=== PATIENT | male | born 1940 | race Caucasian/White ===

== ENCOUNTER → 2016-06-01 | Outpatient (CLI) | payer MEDICARE ==
[~2016-06-01] MED LIST: ALPRAZOLAM ER1 MG GT; ALPRAZOLAM ER1 MG PEG; ALPRAZOLAM0.5 MG PO; ALPRAZOLAM1 MG GT; ASPIRIN81 M2 PO; ASPIRINEC PO; AUGMENTIN875 M1 PEG; CLARITIN10 MG; DAKIN'S MODIF1000 ML EXT; DILAUDID PO; EXCEDRIN MIGRAI1 TA1; FISH OIL PO; GABAPENTIN300 M2 GT; GABAPENTIN300 MG; GABAPENTIN300 MG GT; GABAPENTIN300 MG PO; LACTULOSE10 G/15 M1 GT; LEVOTHYROXINE25 MCG GT; LIPITOR PO; LISINOPRIL PO; LOPRESSOR PO; LORTAB 5-325 M1 EACH PO; NICOTINE TRANSD14 MG EXT; PHENERGAN PO; PRAVACHOL80 MG PO; PRAVASTATIN SOD40 MG PO; PRAVASTATIN SOD80 MG GT; ROCEPHIN IV; SYNTHROID GT; SYNTHROID0.05 MG DOB; VIBRAMYCIN100 M1 GT; VICODIN 5/500 T1 TAB
--- NOTE | ~2016-06-01 | CR63 ---
[facility] A Service of [facility] RADIOLOGY TEXT RESULTS PATIENT: MICHEAL LATHAM RAY LOCATION: [facility] : 40 UNIT #: [id number] AGE: [address]: DONTA TRISTAN MD SEX: M ORDER DR: [id number] [facility]. [place], [place] [address] [id number] O MR#: [id number] Acc #: [id number] NAME: MICHEAL LATHAM : 1940 SEX: M STUDY DATE/TIME: 06/01/2016 12:36 UNIT: [facility] ROOM: STUDY DESCRIPTION: CR Chest 2 View Attending Physician: Donta Tristan M.D. Referring Physician: Donta Tristan M.D. Ordering Physician: Donta Tristan M.D. Primary Care Physician: Donta Tristan M.D. MEDICAL IMAGING REPORT This report is preliminary unless electronic signature is present EXAM Two-view chest, 06/01/2016 INDICATIONS 75-year-old male with respiratory infection, acute upper respiratory infection, tobacco dependence. Cough and congestion for 3 weeks. History of throat and tongue malignancy. History of tobacco abuse. TECHNIQUE Two-view chest was performed. COMPARISON 10/14/2015 FINDINGS Vertebroplasty changes are present at the thoracolumbar junction. The patient is status post anterior cervical surgery. Cardiac silhouette within normal limits. There is elongation of the thoracic aorta which is tortuous and ectatic. Mild emphysema present. There is basilar fibrosis and scarring left greater than right. Additional fibrosis/scarring in the mid to upper lung zone on the right. No dense consolidation pneumothorax or effusion. There is thoracic spondylosis. IMPRESSION 1. Chronic lung changes related to emphysematous scarring and fibrosis. No definite superimposed active disease. 2. Vertebroplasty changes in the thoracolumbar junction region and postop changes in the cervical spine. Dictated by... Scottie Antonio M.D. THIS IS AN ELECTRONICALLY VERIFIED REPORT [facility] A Service of [facility] RADIOLOGY TEXT RESULTS PATIENT: MICHEAL LATHAM RAY [id number] UNIT #: [id number] AGE: [address]: DONTA TRISTAN MD SEX: M ORDER DR: Scottie Antonio M.D. at 06/02/2016 10:23 AM Melisa TD: 06/02/2016 08:03 JOB #: [id number] MEDICAL IMAGING REPORT COPY
== END | disposition home or self-care (01) ==
LOC: CRAD 12:15
DX: J06.9 Acute upper respiratory infection, unspecified (principal); J43.9 Emphysema, unspecified; J98.4 Other disorders of lung; J84.10 Pulmonary fibrosis, unspecified; F17.200 Nicotine dependence, unspecified, uncomplicated; Z98.890 Other specified postprocedural states
CPT/HCPCS: 71020

== ENCOUNTER 2016-09-11 23:11 | Inpatient (IN) | payer MEDICARE ==
--- NOTE | ~2016-09-11 | CT127 ---
[facility] A Service of [facility] & [facility] RADIOLOGY TEXT RESULTS PATIENT: MICHEAL LATHMA RAY LOCATION: C2A 242-01 : 40 UNIT #: [id number] AGE: [address]: Marvel Sandoval MD SEX: M ORDER DR: [id number] [facility] [address] [facility]. [place], [place] [address] [id number] I MR#: [id number] Acc #: [id number] NAME: MICHEAL LATHAM : 1940 SEX: M STUDY DATE/TIME: 09/12/2016 11:12 UNIT: C2A ROOM: 242 STUDY DESCRIPTION: CT Upper Ext Lt Wo Cont Attending Physician: Marvel Sandoval M.D. Ordering Physician: Faustino Schwartz M.D. Primary Care Physician: Bettye Johnson M.D. MEDICAL IMAGING REPORT This report is preliminary unless electronic signature is present EXAM CT left elbow without contrast, 09/12/2016 HISTORY 75-year-old male with left elbow and arm pain for 2 days. Swelling. Order states septic cellulitis, evaluate for left elbow effusion. COMPARISON Left elbow x-ray, 09/12/2016 TECHNIQUE Helical scan performed through the left elbow without IV contrast. Multiplanar reformatted images. This CT exam was performed with one or more of the following radiation dose reduction techniques: Automatic exposure control, adjustment of mA and/or kV according to patient size, and iterative reconstruction. FINDINGS The examination is significantly limited by streak artifact related to positioning. No evidence of acute fracture or dislocation. There are advanced degenerative changes throughout the elbow. There is a 1-cm osseous body adjacent to the coronoid process. There is no evidence of a significant effusion on this unenhanced exam. There is mild posterior soft tissue swelling along the elbow. No grossly drainable soft tissue fluid collections are identified. IMPRESSION 1. Limited examination secondary to streak artifact and lack of IV contrast. Allowing for this, no gross evidence of a significant joint effusion or soft tissue fluid collection. 2. Advanced left elbow arthrosis with a suspected 1-cm osseous body adjacent to the coronoid process of the ulna. No evidence of acute fracture. [facility] A Service of [facility] & [facility] RADIOLOGY TEXT RESULTS PATIENT: MICHEAL LATHAM RAY LOCATION: C2A 242-01 : 40 UNIT #: [id number] AGE: [address]: Marvel Sandoval MD SEX: M ORDER DR: Dictated by... Niranjan Bourgeois M.D. THIS IS AN ELECTRONICALLY VERIFIED REPORT Niranjan Bourgeois M.D. at 09/12/2016 6:10 PM DEION/richard TD: 09/12/2016 16:57 JOB #: [id number] MEDICAL IMAGING REPORT Page 1 of 1 COPY
--- NOTE | ~2016-09-11 | OR ---
Unit #: [id number] #: [id number] Patient: MICHEAL LATHAM [id number] [address] [address] [id number] I MR#: [id number] NAME: MICHEAL LATHAM ROOM: 242 Date of Procedure: 09/13/2016 Admission Date: 09/12/2016 Surgeon: Faustino Schwartz M.D. : 1940 Attending Physician: Marcelina Tomas M.D. Primary Care Physician: Bettye Johnson M.D. OPERATIVE REPORT PREOPERATIVE DIAGNOSIS Infected left elbow. POSTOPERATIVE DIAGNOSIS Infected left elbow. PROCEDURE PERFORMED Incision and drainage, left elbow. ASSISTANTS Yokasta Rivrea. ANESTHESIA Block. DESCRIPTION OF PROCEDURE The patient brought to the operating room, given a block by Anesthesia, then brought back to the operating room. Tourniquet placed around the left arm. The left arm was prepped and draped in a sterile fashion. Tourniquet inflated to 200. We then made a lateral skin incision over the radiocapitellar joint. The subcutaneous dissected away. The radiocapitellar joint was entered and there was very cloudy fluid was returned about probably 7 to 10 mL. This was cultured. We then debrided the soft tissues a bit and then irrigated the joint with bacitracin. We then placed a small drain, repaired the lateral capsule with 0 Vicryl. The subcutaneous was closed with 2-0 Vicryl, sterile daniel in the skin. Sterile dressing applied and his general anesthetic reversed. nurse's assistant, Yokasta Rivera, was present throughout the entire case. Dictated by... Jermaine Ortiz/solitario TD: 09/13/2016 20:25 JOB #: [id number] Unit #: [id number] #: [id number] Patient: MICHEAL LATHAM OPERATIVE REPORT Page 1 of 1 X Faustino Schwartz MD PROCEDURE OPERATIVE NOTE
--- NOTE | ~2016-09-11 | DS ---
Unit #: [id number] #: [id number] Patient: MICHEAL LATHAM [id number] I MR#: [id number] NAME: MICHEAL LATHAM ROOM: 242 Age: 75 Sex: M Admission Date: 09/12/2016 : 1940 Discharge Date: 09/16/2016 Attending Physician: Marcelina Tomas M.D. Primary Care Physician: Bettye Johnson M.D. DISCHARGE SUMMARY PRINCIPAL DIAGNOSES 1. Left elbow septic arthritis with negative gram stains. 2. Chronic hypoxic respiratory failure, maintained on 2 L of oxygen per nasal cannula continuously. 3. Chronic obstructive pulmonary disease. 4. Tobaccoism. 5. History of head and neck cancer, status post PEG tube placement. 6. History of lung cancer. 7. Mild hyponatremia. 8. Moderate protein malnutrition. 9. Hypothyroidism, per history. CONSULTANTS 1. Dr. Schwartz - Orthopedic Surgery. 2. Dr. Heath - Infectious Disease. PROCEDURES 1. Incision and drainage of left elbow. This occurred without complication. 2. X-ray of left elbow on September 12, 2016, with no acute findings. Extensive degenerative change of left elbow noted. 3. Chest x-ray on September 12, 2016, with increased opacity in the right apex suspicious for infiltrate. 4. CT of left upper extremity without contrast on September 12, 2016. There is no gross evidence of significant joint effusion or soft tissue fluid collection. 5. Left elbow arthrosis noted. CLINICAL HISTORY/HOSPITAL COURSE Mr. Latham is a nice 75-year-old male who presents to the emergency department with swelling, redness and pain of his left elbow. Please refer to H and P for further details. Clinical evaluation was most consistent with cellulitis. Upon presentation, patient was found to have a leukocytosis of 19.8. He was subsequently admitted. Orthopedic surgery was consulted regarding patient's cellulitis. X-rays failed to reveal any significant findings. CT scan did not reveal any abscess. However, patient continues to complain of significant pain, swelling, and there was a lot of associated warmth. He subsequently underwent I and D and was found to have a septic left elbow. However, cultures were negative given he has been on antibiotic therapy approximately two days prior to surgical intervention. For guidance regarding antibiotic therapy, Dr. Heath consulted. The patient was initially maintained on vancomycin and Zosyn. He has now been changed to Unit #: [id number] #: [id number] Patient: MICHEAL LATHAM Rocephin. He has remained afebrile and white blood cell count overall has been relatively stable. I will note, on day of discharge it is still elevated at approximately 16,000 but patient has remained afebrile. He will have weekly blood work done while on Rocephin. I will note, patient was found to be hypoxic several days during evaluation. He did not have any wheezes. Room air O2 sats went into the low 80s and patient was asymptomatic. I have arranged home oxygen for him at 2 L per nasal cannula. We briefly discussed tobacco cessation. DISCHARGE CONDITION Stable. DISCHARGE STATUS To home with home health. DISCHARGE MEDICATIONS 1. Rocephin 2 g IV q.24 hours through October 14, 2016. 2. [place] 5/325, one to two tablets p.o. q.4 hours p.r.n. for pain, number given 25. 3. Aspirin 81 mg daily. 4. Pravachol 80 mg daily. 5. Xanax 1 mg daily. 6. Gabapentin 300 mg daily. 7. The patient will continue bolused tube feeds as he was doing at home previously. DISCHARGE INSTRUCTIONS The patient was instructed to again continue his bolus tube feeds as noted. In regards to dressing changes of his elbow, dressing should be changed daily or saturated. He can increase activity as tolerated. FOLLOWUP The patient will follow up with Dr. Schwartz in approximately ten days. The patient will follow up with his primary care physician, Dr. Bettye Johnson, in two weeks. While on IV antibiotics, patient needs weekly CBC, BMP, CRP and sed rate done with results faxed to Dr. Heath and she should have discontinuation of PICC line after last dose of antibiotics on 10/14. Dictated by... Marcelina Tomas M.D. SHERIE/keon TD: 09/17/2016 11:14 JOB #: [id number] Unit #: [id number] #: [id number] Patient: MICHEAL LATHAM DISCHARGE SUMMARY Page 1 of 1 X Marcelina Tomas MD X DISCHARGE SUMMARY
--- NOTE | ~2016-09-11 | CR72 ---
[facility] A Service of [facility] RADIOLOGY TEXT RESULTS PATIENT: MICHEAL LATHAM LOCATION: C2A 242 : 40 UNIT #: [id number] AGE: [address]: Marvel Sandoval MD SEX: M ORDER DR: [id number] [facility] [address] [facility]. [place], [place] [address] [id number] I MR#: [id number] Acc #: [id number] NAME: MICHEAL LATHAM : 1940 SEX: M STUDY DATE/TIME: 09/12/2016 0:31 UNIT: CEDOF ROOM: 98453 STUDY DESCRIPTION: CR Chest Single View Portable Attending Physician: Marvel Sandoval M.D. Ordering Physician: Alena Harris M.D. Primary Care Physician: Bettye Johnson M.D. MEDICAL IMAGING REPORT This report is preliminary unless electronic signature is present EXAM Portable chest INDICATION Preoperative evaluation for elbow surgery. Weakness and shortness of air today. PROCEDURE Frontal view chest. COMPARISON 06/01/2016 FINDINGS There is increased opacity in the right apex since the previous study. Heart size is stable. No visible pneumothorax. IMPRESSION Increased opacity in the right apex since 06/01/2016 suspicious for infiltrate. Correlate with any current symptoms. Dictated by... Nilson Campbell M.D. THIS IS AN ELECTRONICALLY VERIFIED REPORT Nilson Campbell M.D. at 09/12/2016 10:22 PM EED/ljd TD: 09/12/2016 03:03 JOB #: [id number] [facility] A Service [facility] RADIOLOGY TEXT RESULTS PATIENT: MICHEAL LATHAM LOCATION: C2A 242- : 40 UNIT #: [id number] AGE: [address]: Marvel Sandoval MD SEX: M ORDER DR: MEDICAL IMAGING REPORT Page 1 of 1 COPY
--- NOTE | ~2016-09-11 | CR93 ---
[facility] A Service of [facility] RADIOLOGY TEXT RESULTS PATIENT: MICHEAL LATHAM LOCATION: C2A 242- : 40 UNIT #: [id number] AGE: [address]: Marvel Sandoval MD SEX: M ORDER DR: [id number] [id number] [place], [place] [address] [id number] I MR#: [id number] Acc #: [id number] NAME: MICHEAL LATHAM : 1940 SEX: M STUDY DATE/TIME: 09/12/2016 0:28 UNIT: CEDOF ROOM: 07473 STUDY DESCRIPTION: CR Elbow Min 3 Views Lt Attending Physician: Marvel Sandoval M.D. Ordering Physician: Alena Harris M.D. Primary Care Physician: Bettye Johnson M.D. MEDICAL IMAGING REPORT This report is preliminary unless electronic signature is present EXAM Left elbow series INDICATION Preoperative evaluation. Elbow pain for the past day. PROCEDURE 3 views of the left elbow. COMPARISON None. FINDINGS Extensive degenerative change. No acute fracture, dislocation or appreciable joint effusion. IMPRESSION No definite acute findings. Extensive degenerative change of the left elbow. Dictated by... Nilson Campbell M.D. THIS IS AN ELECTRONICALLY VERIFIED REPORT Nilson Campbell M.D. at 09/12/2016 10:22 PM EED/stephen TD: 09/12/2016 03:02 JOB #: [id number] MEDICAL IMAGING REPORT [facility] A Service of [facility] RADIOLOGY TEXT RESULTS PATIENT: MICHEAL LATHAM LOCATION: C2A 242 : 40 UNIT #: [id number] AGE: [address]: Marvel Sandoval MD SEX: M ORDER DR: Page 1 of 1 COPY
--- NOTE | ~2016-09-11 | HP ---
Unit #: [id number] #: [id number] Patient: MICHEAL LATHAM [id number] [address] [address] [id number] I MR#: [id number] NAME: MICHEAL LATHAM ROOM: 242 Age: 75 Sex: M Admission Date: 09/12/2016 : 1940 Attending Physician: Marvel Sandoval M.D. Primary Care Physician: Bettye Johnson M.D. HISTORY AND PHYSICAL CHIEF COMPLAINT Left elbow pain and swelling of 3 days' duration. HISTORY OF PRESENT ILLNESS This is a 75-year-old male who has history of multiple medical problems in the past who has presented to the emergency room for not feeling well, having generalized weakness, left elbow pain and swelling of 3 days' duration, which had gradually been getting worse. The patient declines any fever or chills, is being admitted for possible cellulitis versus abscess. PAST MEDICAL HISTORY 1. Stage II non-small cell lung cancer diagnosed in 2007 status post (1) dissection, radiation treatment, chemotherapy. 2. Hypothyroidism. 3. History of prostate cancer. PAST SURGICAL HISTORY 1. Status post prostatectomy. 2. History of PEG tube placement in the past. 3. Total hip replacement bilaterally. 4. Bilateral inguinal hernia repair. ALLERGIES None. HOME MEDICATION List is reviewed. Please see chart. CURRENT MEDICATIONS 1. Pravachol 80 mg daily. 2. Gabapentin 300 mg p.o. daily. 3. Alprazolam 1 mg p.o. daily. 4. Aspirin 81 mg daily. SOCIAL HISTORY Lives at home with nephew and the nephew's family. Smokes less than half a pack per day. REVIEW OF SYSTEMS A 10-point review of systems was completed. Please HPI. Otherwise, it is unremarkable. PHYSICAL EXAMINATION Unit #: [id number] #: [id number] Patient: MICHEAL LATHAM GENERAL: He is awake, alert, oriented to time, place and person. VITAL SIGNS: He is afebrile. Temperature is 98, blood pressure 101/54, pulse rate 79. HEENT: EOMI. Pupils equally react to light. NECK: Supple. No thyromegaly noted. CVS: Regular rhythm. No murmurs. ABDOMEN: Soft. Nontender. Bowel sounds positive. EXTREMITIES: Left arm swelling and cellulitis noted at the left elbow area. NEUROLOGIC: Nonfocal. Moving all extremities. SKIN: No ulcers or rashes noted. DIAGNOSTIC STUDIES LABS: BUN is 12, creatinine 0.7, sodium 133, potassium 4.1, chloride 98, CO2 26. Hemoglobin is 12.4, hematocrit 38.3, white cell count is 18,000 with 82% neutrophils. Blood cultures are pending. ASSESSMENT 1. Left elbow cellulitis/abscess. 2. History of lung cancer in the past with radiation. 3. Abnormal thyroid function test. PLAN Start IV antibiotics, vancomycin and Zosyn. Patient seen by orthopedics. Will check the CT scan of left elbow for possible evaluation for effusion/abscess. Possible I and D in the morning, as per ortho. The patient is NPO at this time. Continue all the home medications. Dictated by Jermaine Fitzgerald/nikki TD: 09/12/2016 13:23 JOB #: [id number] HISTORY AND PHYSICAL Page 1 of 1 X Nabil Pérez MD X HISTORY AND PHYSICAL
--- NOTE | ~2016-09-11 | EKG ---
PATIENT: MICHEAL LATHAM UNIT #: [id number] Ventricular Rate: 77 BPM Atrial Rate: 77 BPM P-R Interval: 156 ms QRS Duration: 72 ms Q-T Interval: 354 ms QTC Calculation(Bezet): 400 ms P [place]: 40 degrees Calculated R [place]: -61 degrees Calculated T [place]: 32 degrees Diagnosis Line: Normal sinus rhythm Diagnosis Line: Left axis deviation Diagnosis Line: Low voltage QRS Diagnosis Line: Inferior infarct (cited on or before 14-OCT-2015) Diagnosis Line: Abnormal ECG Diagnosis Line: When compared with ECG of 14-OCT-2015 17:24, Diagnosis Line: No significant change was found Diagnosis Line: Confirmed by KORY DREW MD ([id number]) on Diagnosis Line: 09/12/2016 10:45:35 PM INTERPRETING MD: STEVE
--- NOTE | ~2016-09-11 | A ---
[facility] Nutrition Therapy DATE: 09/13/16 Patient: MICHEAL LATHAM Physician: NATIVIDAD Address: [address] Room/Bed: [address] [place] [address], Zip: [place] [address] Admit Date: 09/12/16 Date of : 40 Height: 5 8 Weight: 152 68.94 NUTRITIONAL ASSESSMENT: REASON: 2 points nutrition screen RE: Home TF and chewing difficulty 75 yo male admitted for elbow pain s/p left elbow I&D PMH: Stage II non-small cell lung cancer, head and neck cancer s/p chemo and radiation, PEG, hypothyroid, prostate cancer Anthropometrics: Ht: 5'8" Wt: 68.94 kg BMI: 23.1 Labs: Na+ 131 Cl- 96 Creat 0.5 Ca++ 8.2 CRP 11.6 Meds: Senokot, MOM, bisacodyl, zofran, lipitor, NaCl, KCl I/O & Bowel function: 2285/7, last BM 09/13, PEG Skin Integrity: PEG- abdomen No edema noted Estimated Nutrition Needs: 7699-1103 kcals (30-35 kcals/kg) 96-124 grams protein (1.4-1.8 grams/kg) Home enteral nutrition regimen (via PEG): Bolus two boxes Isosource 1.5 TID for a total of six boxes (with additional as needed) This regimen provides: 2250 kcals/ 102 grams protein/ 1146 mL free H20 Assessment: Chart reviewed, events noted. RD assessing the pt for his home TF regimen. RD spoke with the pt and his family at bedside. Family reports that the pt does not take any nutrition PO, receives all nutrition via his PEG for several years, which the family brings from home and administers via PEG (Isosource 1.5). Please note, the pt is ordered a clear liquid diet. RD informed RN that the pt should not have a PO diet order. Pt and his family report that his typical enteral regimen at home as noted above. This does meet the pt's nutritional needs calculated by RD; however, pt and family report that he has lost some weight recently. RD recommended to increase this regimen by one box of Isosource 1.5 if weight loss persists. Pt and family unsure of exact weight loss amount. Pt and family denied having any nutrition-related questions at this time. Dx: Unplanned weight loss RT PMH, increased nutrient needs AEB pt and family reported weight loss of unknown amount (suspected ~5#). [facility] Nutrition Therapy DATE: 09/13/16 Patient: MICHEAL LATHAM Physician: NATIVIDAD Address: [facility] [address] Room/Bed: [address] [place] [address], Zip: [place] [address] Admit Date: 09/12/16 Date of : 40 Height: 5 8 Weight: 152 68.94 Intervention: 1. Continue home enteral nutrition regimen, adding one box as needed for weight loss 2. Free H20 Monitoring, Evaluation and Goals: 1. Enteral nutrition; tolerance, provide >80% goal volume x 24 hrs 2. Weight; prevent weight loss 3. Improve labs; Na+ Recommendations: 1. Continue the pt's current home enteral nutrition regimen with Isosource 1.5. Bolus two boxes (250 mL each) TID for a total of six boxes to provide: 2250 kcals/ 102 grams protein/ 1146 mL free H20 *Bolus an additional 1-2 boxes as needed for weight loss Please note, the pt's family brings his enteral formula from home and administers it via PEG 2. Add 200 mL free H20 flushes q 4 hrs or per MD orders. 3. D/C clear liquid diet order, as the pt's family reports that the pt is to remain NPO. Respectfully, ABHAY GRAF RD, LD Food and Nutritional Services [facility] cc: client file
--- NOTE | ~2016-09-11 | XA166 ---
[facility] A Service of [facility] & [facility] RADIOLOGY TEXT RESULTS PATIENT: MICHEAL LATHAM RAY LOCATION: C2A 242-01 : 40 UNIT #: [id number] AGE: [address]: Marcelina Tomas MD SEX: M ORDER DR: [id number] [id number] [facility]. [place], [place] [address] [id number] I MR#: [id number] Acc #: [id number] NAME: MICHEAL LATHAM : 1940 SEX: M STUDY DATE/TIME: 09/15/2016 15:22 UNIT: C2A ROOM: 242 STUDY DESCRIPTION: XA PICC Line Placement WO Port Attending Physician: Marcelina Tomas M.D. Ordering Physician: Kimo Heath M.D. Primary Care Physician: Bettye Johnson M.D. MEDICAL IMAGING REPORT This report is preliminary unless electronic signature is present EXAM Right-sided PICC line placement INDICATION Need for IV access in a patient with left elbow and arm pain for 2 days as well as concern for cellulitis. PRE-PROCEDURE The procedure was explained to the patient and/or patient dental detail representative including risks, benefits, potential complications and potential for alternative forms of treatment. Informed consent was obtained, and prior to initiating the procedure a formal timeout procedure was performed. PROCEDURE Using full standard sterile barrier technique, including caps, gowns, gloves, masks, as well as sterile skin preparation and standard sterile draping, the right arm was prepped and draped in the usual fashion, and real-time sterile ultrasound guidance was used to localize an arm vein and to confirm vessel patency. A hard copy ultrasound image was recorded. After local anesthesia with 1% Xylocaine, the vein was punctured using real-time sterile ultrasound guidance, and an 0.018 guidewire was advanced into the superior vena cava, using fluoroscopic guidance. A 4-Belarusian single-lumen PICC was then measured and deployed with the tip positioned in the superior vena cava. The position of the line was documented with a radiographic image. The line was secured in place with an adhesive dressing and an antibiotic patch was applied. Total fluoro time was 0.1 minutes. A single fluoroscopic image was obtained. AK is 1 mGy. IMPRESSION Successful placement of a 4-Belarusian single-lumen PowerPICC via the right arm under ultrasound and fluoroscopic guidance. The tip of the PICC is in good position in the superior vena cava. [facility] A Service of [facility] RADIOLOGY TEXT RESULTS PATIENT: MICHEAL LATHAM RAY LOCATION: C2A 242-01 : 40 UNIT #: [id number] AGE: [address]: Marcelina Tomas MD SEX: M ORDER DR: Dictated by... Lynn Virk M.D. THIS IS AN ELECTRONICALLY VERIFIED REPORT Lynn Virk M.D. at 09/16/2016 5:11 PM AFF/aa TD: 09/16/2016 14:07 JOB #: [id number] MEDICAL IMAGING REPORT Page 1 of 1 COPY
--- NOTE | ~2016-09-11 | CO ---
Unit #: [id number] #: [id number] Patient: MICHEAL LATHAM [id number] [address] [place], [place] [address] [id number] MR#: [id number] NAME: MICHEAL LATHAM ROOM: 242 Age: 75 Sex: M Admission Date: 09/12/2016 : 1940 Attending Physician: Marcelina Tomas M.D. Primary Care Physician: Bettye Johnson M.D. Consultation Date: 09/14/2016 CONSULTATION REPORT REASON FOR CONSULTATION Infected left elbow. HISTORY OF PRESENT ILLNESS This is a 75-year-old gentleman, who is not a very good historian. He has multiple medical problems including non-small cell lung cancer, status post chemo radiation, hypothyroidism, and history of prostate cancer, who was admitted with 3 days history of left elbow pain, redness, and swelling. There was no injury history. Elbow was tapped. The specimen was not sent for cell count, crystals were negative however. He underwent I and D, details of surgery including depth of infection, structure involvement, and operative findings are pending. The cultures also in progress. ID was consulted for antibiotic recommendations. The patient is currently on vancomycin and Zosyn and is clinically stable without any signs of systemic sepsis. PAST MEDICAL HISTORY Stage II non-small cell lung cancer since 2007, status post chemo-radiation; hypothyroidism; prostate cancer. PAST SURGICAL HISTORY Prostatectomy, PEG placement, hip replacement, inguinal hernia repairs. MEDICATIONS Current medications; Pravachol, gabapentin, alprazolam, aspirin, vancomycin, and Zosyn. ALLERGIES None. SOCIAL HISTORY He lives at home. No history of alcohol or drug use. History of smokes half a pack cigarettes daily. FAMILY HISTORY Negative. SYSTEMIC REVIEW Left elbow pain, redness, and swelling with decreased range of motion. No fever, chills, cough, abdominal pain, nausea, vomiting, or diarrhea. PHYSICAL EXAMINATION GENERAL: Reveals an elderly white male, who is awake and alert, in no acute distress. Unit #: [id number] #: [id number] Patient: MICHEAL LATHAM VITAL SIGNS: Stable. Temperature 98.2, heart rate 70, respirations 20, blood pressure 121/75. No hypotension or fever was recorded during this admission. He is edentulous. NECK: Supple. There is no JVD or edema. LUNGS: Clear. HEART: Sounds normal. ABDOMEN: Soft and nontender. There is no rebound or guarding. Bowel sounds are normal. EXTREMITIES: Left elbow in surgical dressing. Range of motion is limited. Wound was not examined. DIAGNOSTIC STUDIES LABORATORY RESULTS: CRP is 11. Crystal exam from the synovial fluid was negative. Cell count was not performed. White count is 14.8, hemoglobin 11.6, platelets 292, neutrophils 84%. Sodium 131, potassium 4, chloride 96, CO2 of 30, BUN 12, creatinine 0.5. Blood cultures are negative. Cultures from the OR is in process. IMAGING STUDIES: CT of the elbow showed limited exam. No gross evidence of joint effusion or soft tissue fluid collection. Advised left elbow arthrosis. We suspected osseous body adjacent to the coronoid process of the ulna. No acute fracture was noted. Chest x-ray, diffuse opacity in the right apex suspicious for infiltrate. IMPRESSION Infected left elbow, possible abscess, possible septic arthritis. Need to review the operative note with OR findings and involvement of the structures and depth of infection before antibiotic can be recommended. I will also await on the culture results to determine the pathogen. Further recommendation will follow. For now, vancomycin and Zosyn are quite appropriate. Dictated by... Jermaine Zaman/solitario TD: 09/14/2016 16:28 JOB #: [id number] CONSULTATION REPORT Page 1 of 1 X Kimo Heath MD X CONSULTATION REPORT
[~2016-09-11 23:11] MED LIST changes: -ASPIRIN81 M2 PO; -ROCEPHIN IV
[2016-09-11] MEDS ORDERED: ASPIRIN81 M2 PO (23:29)
[2016-09-12 00:38] LABS: POC - CKMB <1.0 ng/mL (0.0-7.9); POC - TROPONIN <0.05 ng/mL (<=0.05)
[2016-09-12 00:48] LABS: BASOPHIL# 0.1 X10e3 (0-0.3); BASOPHIL% 0.5 % (0-2.5); HEMATOCRIT 38.2 % (38.0-50.0); HEMOGLOBIN 12.6 gm/dL (13.0-16.0); LYMPHOCYTE# 0.6 X10e3 (1.0-3.5); LYMPHOCYTE% 3.1 % (17.0-45.0); MEAN CELL VOLUME 90.3 FL (83-96); MEAN CORPUSCULAR HEMOGLOBIN 29.8 PG (28-34); MEAN PLATELET VOLUME 8.3 FL (6.5-11.5); MONOCYTE# 1.6 X10e3 (0-1.0); MONOCYTE% 7.9 % (3.0-12.0); NEUTROPHIL# 17.5 X10e3 (1.5-7.1); NEUTROPHIL% 88.5 % (40-75); PLATELET COUNT 347 X10e3 (140-420); RED BLOOD COUNT 4.23 X10e (3.90-5.60); RED CELL DISTRIBUTION WIDTH 13.3 % (11.0-15.5); WHITE BLOOD COUNT 19.8 X10e3 (4.0-10.5)
[2016-09-12 01:00] LABS: DIFF IND YES; INR 1.1; PARTIAL THROMBOPLASTIN TIME 28.8 SECONDS (23.5-31.3); PROTHROMBIN TIME (PATIENT) 11.9 SECONDS (10.0-11.7)
[2016-09-12 01:12] LABS: ALBUMIN SERUM 2.8 g/dL (3.5-5.0); BILIRUBIN, DIRECT 0.2 mg/dL (0.0-0.2); BILIRUBIN,INDIRECT 0.8 mg/dL (0.0-0.9); CALCIUM SERUM 8.6 mg/dL (8.4-10.2); CREATININE SERUM 0.6 mg/dL (0.6-1.4); GLOM FILT RATE Estimated 98.4 mL/min (>60); POTASSIUM 4.3 mmol/L (3.5-5.1); PROTEIN TOTAL SERUM 7.1 g/dL (6.0-8.3)
[2016-09-12 01:17] LABS: PLATELET ESTIMATE NORMAL (NORMAL)
[2016-09-12 01:54] LABS: BF CRYSTAL EXAM NO CRYSTALS SEEN
[2016-09-12 01:55] LABS: BODY FLUID APPEARANCE CLOUDY; BODY FLUID SOURCE SYNOVIAL
[2016-09-12 08:14] LABS: BASOPHIL# 0.1 X10e3 (0-0.3); BASOPHIL% 0.3 % (0-2.5); HEMATOCRIT 38.3 % (38.0-50.0); HEMOGLOBIN 12.4 gm/dL (13.0-16.0); LYMPHOCYTE# 1.3 X10e3 (1.0-3.5); LYMPHOCYTE% 7.2 % (17.0-45.0); MEAN CELL VOLUME 90.6 FL (83-96); MEAN CORPUSCULAR HEMOGLOBIN 29.4 PG (28-34); MEAN CORPUSCULAR HGB CONC 32.5 g/dL (30-36); MEAN PLATELET VOLUME 7.8 FL (6.5-11.5); MONOCYTE# 1.8 X10e3 (0-1.0); MONOCYTE% 9.9 % (3.0-12.0); NEUTROPHIL# 14.8 X10e3 (1.5-7.1); NEUTROPHIL% 82.6 % (40-75); PLATELET COUNT 332 X10e3 (140-420); RED BLOOD COUNT 4.23 X10e (3.90-5.60)
[2016-09-12 08:15] LABS: CALCIUM SERUM 8.7 mg/dL (8.4-10.2); CREATININE SERUM 0.4 mg/dL (0.6-1.4); GLOM FILT RATE Estimated 116.2 mL/min (>60); POTASSIUM 4.1 mmol/L (3.5-5.1)
[2016-09-12 08:22] LABS: DIFF IND NO
[2016-09-13 07:58] LABS: BASOPHIL# 0.1 X10e3 (0-0.3); BASOPHIL% 0.4 % (0-2.5); HEMATOCRIT 36.1 % (38.0-50.0); HEMOGLOBIN 11.6 gm/dL (13.0-16.0); LYMPHOCYTE# 0.9 X10e3 (1.0-3.5); LYMPHOCYTE% 6.4 % (17.0-45.0); MEAN CELL VOLUME 90.4 FL (83-96); MEAN CORPUSCULAR HEMOGLOBIN 29.1 PG (28-34); MEAN CORPUSCULAR HGB CONC 32.2 g/dL (30-36); MEAN PLATELET VOLUME 7.9 FL (6.5-11.5); MONOCYTE# 1.4 X10e3 (0-1.0); MONOCYTE% 9.2 % (3.0-12.0); NEUTROPHIL# 12.4 X10e3 (1.5-7.1); PLATELET COUNT 292 X10e3 (140-420); RED BLOOD COUNT 3.99 X10e (3.90-5.60); RED CELL DISTRIBUTION WIDTH 13.3 % (11.0-15.5); WHITE BLOOD COUNT 14.8 X10e3 (4.0-10.5)
[2016-09-13 08:04] LABS: DIFF IND NO
[2016-09-13 08:35] LABS: CALCIUM SERUM 8.2 mg/dL (8.4-10.2); CREATININE SERUM 0.5 mg/dL (0.6-1.4)
[2016-09-13 17:05] LABS: FREE T3 2.5 pg/mL (2.5-3.9)
[2016-09-13 17:07] LABS: FREE THYROXIN (T4) 0.76 ng/dL (0.58-1.64)
[2016-09-14 03:53] LABS: HEMATOCRIT 37.6 % (38.0-50.0); HEMOGLOBIN 11.9 gm/dL (13.0-16.0); MEAN CELL VOLUME 91.6 FL (83-96); MEAN CORPUSCULAR HEMOGLOBIN 28.9 PG (28-34); MEAN CORPUSCULAR HGB CONC 31.6 g/dL (30-36); RED BLOOD COUNT 4.11 X10e (3.90-5.60); RED CELL DISTRIBUTION WIDTH 13.2 % (11.0-15.5); WHITE BLOOD COUNT 12.9 X10e3 (4.0-10.5)
[2016-09-14 04:08] LABS: INR 1.1
[2016-09-14 04:13] LABS: BUN/CREATININE RATIO 21.66; CALCIUM SERUM 8.1 mg/dL (8.4-10.2); CREATININE SERUM 0.6 mg/dL (0.6-1.4); GLOM FILT RATE Estimated 98.4 mL/min (>60)
[2016-09-15 05:54] LABS: HEMATOCRIT 36.5 % (38.0-50.0); HEMOGLOBIN 11.6 gm/dL (13.0-16.0); MEAN CELL VOLUME 90.3 FL (83-96); MEAN CORPUSCULAR HEMOGLOBIN 28.6 PG (28-34); MEAN CORPUSCULAR HGB CONC 31.7 g/dL (30-36); MEAN PLATELET VOLUME 7.9 FL (6.5-11.5); RED BLOOD COUNT 4.04 X10e (3.90-5.60); RED CELL DISTRIBUTION WIDTH 13.4 % (11.0-15.5); WHITE BLOOD COUNT 12.4 X10e3 (4.0-10.5)
[2016-09-15 08:32] LABS: INR 1.1; PROTHROMBIN TIME (PATIENT) 11.8 SECONDS (10.0-11.7)
[2016-09-16 05:22] LABS: HEMATOCRIT 36.8 % (38.0-50.0); HEMOGLOBIN 11.7 gm/dL (13.0-16.0); MEAN CELL VOLUME 91.6 FL (83-96); MEAN CORPUSCULAR HEMOGLOBIN 29.1 PG (28-34); MEAN CORPUSCULAR HGB CONC 31.7 g/dL (30-36); MEAN PLATELET VOLUME 8.7 FL (6.5-11.5); RED BLOOD COUNT 4.02 X10e (3.90-5.60); RED CELL DISTRIBUTION WIDTH 13.6 % (11.0-15.5); WHITE BLOOD COUNT 16.1 X10e3 (4.0-10.5)
[2016-09-16 05:57] LABS: INR 1.1; PROTHROMBIN TIME (PATIENT) 11.4 SECONDS (10.0-11.7)
[2016-09-16 06:21] LABS: CALCIUM SERUM 8.5 mg/dL (8.4-10.2); CREATININE SERUM 0.6 mg/dL (0.6-1.4); GLOM FILT RATE Estimated 98.4 mL/min (>60); POTASSIUM 4.3 mmol/L (3.5-5.1)
[2016-09-16] MEDS ORDERED: LORTAB 5-325 M1 EACH PO (13:47)
[2016-09-16] MEDS ORDERED: ROCEPHIN IV (13:47)
== END 2016-09-16 15:10 | disposition home health service (06) | DRG 507 ==
LOC: CED 23:11 → CEDOF 09-12 01:35 → CED 09-12 01:35 → CEDOF 09-12 01:47 → C2A 09-12 03:31 → CEDOF 09-12 03:31 → C2A 09-12 10:16 → CEDOF 09-12 10:16 → C2A 09-13 08:08
PROVIDERS: Emergency Medicine; Internal Medicine; Orthopaedic Surgery
PROC: 0R9M0ZZ Drainage of Left Elbow Joint, Open Approach (ICD-10-PCS; principal; 2016-09-13 11:00)
PROC: 02HV33Z Insertion of Infusion Device into Superior Vena Cava, Percutaneous Approach (ICD-10-PCS; 2016-09-15)
PROC: B518YZA Fluoroscopy of Superior Vena Cava using Other Contrast, Guidance (ICD-10-PCS; 2016-09-15)
PROC: B548ZZA Ultrasonography of Superior Vena Cava, Guidance (ICD-10-PCS; 2016-09-15)
DX: M00.822 Arthritis due to other bacteria, left elbow (principal); E87.1 Hypo-osmolality and hyponatremia; J96.11 Chronic respiratory failure with hypoxia; E44.0 Moderate protein-calorie malnutrition; Z85.46 Personal history of malignant neoplasm of prostate; Z85.118 Personal history of other malignant neoplasm of bronchus and lung; Z85.819 Personal history of malignant neoplasm of unspecified site of lip, oral cavity, and pharynx; E03.9 Hypothyroidism, unspecified; J44.9 Chronic obstructive pulmonary disease, unspecified; F17.210 Nicotine dependence, cigarettes, uncomplicated; E78.5 Hyperlipidemia, unspecified; Z96.643 Presence of artificial hip joint, bilateral; Z79.82 Long term (current) use of aspirin
CPT/HCPCS: 36415; 71010; 73080; 73200; 76937; 77001; 80048; 80076; 80202; 82553; 82947; 83605; 84439; 84443; 84481; 84484; 84550; 85025; 85027; 85610; 85652; 85730; 86140; 87040; 87070; 87075; 87205; 89051; 89060; 93005; 94760; 96361; 96374; 97110; 97116; 97161; 97166; 97530; 97535; 99285; C1751; G8978-GP; G8979-GP; G8980-GP; G8987-GO; G8988-GO; J0696; J1170; J1642; J1650; J2250; J2270; J2405; J2543; J3010; J3370